=== PATIENT | female | born 1995 | race Caucasian/White ===

== ENCOUNTER → 2019-12-18 13:56 | Outpatient (BNVA) | payer SELFPAY | PROVIDERS: Visit Provider Obstetrics & Gynecology | DX: Z36.89 Encounter for other specified antenatal screening (principal); O09.899 Supervision of other high risk pregnancies, unspecified trimester | CPT/HCPCS: 76801 ==

== ENCOUNTER → 2020-01-01 11:04 | Outpatient (BNVA) | payer MEDICAID, SELFPAY | PROVIDERS: Visit Provider Obstetrics & Gynecology | DX: O09.899 Supervision of other high risk pregnancies, unspecified trimester (principal) | CPT/HCPCS: 80053; 80307; 81000; 84443; 85027; 86592; 86762; 86803; 86850; 86900; 87340; 87491; 87591; 87806; 88175 ==

== ENCOUNTER 2020-01-14 21:13 | Emergency (ER) | payer MEDICAID, SELFPAY ==
[2020-01-14 21:20] VITALS: BP 127/83; PULSE 79; RESP 16; TEMP 37.1; O2SAT 100; BMI 22.6
[2020-01-14 21:29] VITALS: BP 111/58; PULSE 69; RESP 16; O2SAT 99
--- NOTE | 2020-01-14 21:41 | W.ED.PREGNAN ---
HPI - General: Chief complaint: Vaginal Bleeding Stated complaint: vaginal bleeding Time Seen by Provider: 01/14/20 21:38 History of Present Illness: HPI Narrative: Patient is a 24-year-old female who comes to the ED with pelvic cramping and spotting. She is currently 16 weeks . Patient says symptoms started this morning. She describes the spotting is very light with a brown-reddish color. The pelvic cramping comes and goes and she says it gets sharp at times. She denies any fever or UTI symptoms. Date of Last Menstrual Period: 09/13/19 Associated symptoms: Deny abdominal pain, dysuria, headache(s), nausea or vomiting Review of Systems Const: Denies: fever, chills or fatigue Eyes: Denies: change in vision or eye discomfort ENMT: Denies: throat pain, painful swallowing, nasal discharge or nasal congestion Card: Denies: chest pain, palpitations, edema, swelling of feet/ankles, shortness of breath on exertion or shortness of breath when lying down Resp: Denies: shortness of breath, productive cough or non-productive cough GI: Denies: abdominal pain, nausea, vomiting, diarrhea, constipation or blood in stool : Denies: flank pain, painful urination or blood in urine Musc: Denies: neck pain, back pain or extremity swelling Skin/Breast: Denies: rash or new lesion Neuro: Denies: headache, numbness in extremities or weakness in extremities PFS ED PFSH: Medical History Anxiety with depression has used medication in the past; especially ; symptoms managed since 2019 w/o meds Fever blister Reports having fever blisters around the mouth and nose area. Denies history of genital herpes. History of cholestasis during Diagnosed in 7th . Required delivery at 36 weeks. Tachycardia (~2012) Surgical History History of appendectomy (~2015) History of neck surgery (~2015) cyst as a child History of tonsillectomy (~2015) Family History Grandmother Hypertension Maternal grandmother Stroke Maternal Grandfather Hypertension Maternal grandfather Hyperlipidemia Paternal grandfather Colon cancer Maternal great grandfather Family/Other Breast cancer Maternal great aunt Social History Smoking and tobacco status: never smoked Quit status (tobacco): has quit using tobacco Year quit tobacco: 09/2019 Former quit date comment: 4-5 cig/day Alcohol intake: former Former alcohol use details: occasional prior to Female Reproductive History: Date of last menstrual period: 09/13/19 Physical Exam Const: COMMON NORMALS: no apparent distress, oriented x3, healthy appearing and alert GENERAL APPEARANCE: cooperative and comfortable HENMT: COMMON NORMALS: normocephalic HEAD & SCALP: normocephalic MOUTH: oral and palatal mucosa normal THROAT: posterior oropharynx normal and uvula midline Eye: COMMON NORMALS: PERRL PUPIL: Yes PERRL Neck/C-Spine: COMMON NORMALS: supple GENERAL: Yes normal visual inspection Resp: COMMON NORMALS: normal respiratory effort, no retractions, no use of accessory muscles and clear to auscultation bilaterally AUSCULTATION: clear to auscultation bilaterally Cardio: COMMON NORMALS: regular rate, regular rhythm, S1 normal heart sound, S2 normal heart sound, no gallops, no clicks, no murmurs and peripheral pulses 2+ throughout RATE: regular rate RHYTHM: regular rhythm HEART SOUNDS: S1 normal and S2 normal PERIPHERAL PULSES: pulses 2+ throughout GI: COMMON NORMALS: normal to inspection, nondistended, normoactive bowel sounds, soft to palpation, non-tender and no masses INSPECTION: Yes gravid abdomen AUSCULTATION: Yes normoactive bowel sounds PALPATION: Yes soft : COMMON NORMALS: Yes no CVA tenderness BLADDER/KIDNEY EXAM: Yes no CVA tenderness Back/Pelvis: COMMON NORMALS: no CVA tenderness Extremity: COMMON NORMALS: normal to inspection and no pedal edema Neuro: COMMON NORMALS: oriented x3 and moves all extremities SENSORIUM/ORIENTATION: Yes alert Skin: COMMON NORMALS: no rashes or lesions noted GENERAL SKIN EXAM: no rashes or lesions noted and dry skin Course Reevaluation(s): Reevaluation #1: Dr. Henriquez performed a bedside ultrasound and said he was able to see an intrauterine with heartbeat over 140s and baby was moving. Time: 21:50 Vital Signs: Vital signs: Vital Signs Temperature 98.8 F 01/14/20 21:20 Pulse Rate 70 01/14/20 22:32 Respiratory Rate 16 01/14/20 22:32 Blood Pressure 116/60 01/14/20 22:32 Pulse Oximetry 99 01/14/20 22:32 MDM - OB/Uterine Contractions MDM Narrative: Medical decision making narrative: Patient is a 24-year-old female that is 16 weeks and comes to the ED with some spotting and cramping. Bedside ultrasound was performed by Dr. Henriquez and he identified an intrauterine with a heartbeat over 140s and baby was active and moving. Patient was discharged and told to follow-up with OB doctor at next scheduled appointment. Patient said her next OB doctor appointment is within the next 5 days. Patient understood and agreed with plan. Lab Data: Attestation: I reviewed the patient's lab results. Labs: Lab Results 01/14/20 01/14/20 01/14/20 Range/Units 21:50 21:50 21:50 WBC 10.3 H (4.0-10.0) 10^3/ uL RBC 4.18 (4.1-5.3) 10^6/u L Hgb 12.5 (11.5-15.3) g/dL Hct 37.1 (37.0-47.0) % MCV 88.8 (81-99) fL MCH 29.9 (28.0-34.0) pg MCHC 33.7 (30.0-36.0) g/dL RDW 12.1 (12.1-15.1) % Plt Count 269 (130-400) 10^3/c mm MPV 10.0 (7.4-10.4) fL Neut % (Auto) 67.5 % Lymph % (Auto) 22.4 % [place]ickson % (Auto) 7.7 % Eos % (Auto) 1.3 % Baso % (Auto) 0.5 % Neut # (Auto) 7.0 (1.8-7.7) 10^3/u L Lymph # (Auto) 2.3 (0.8-4.8) 10^3/u L Dickson # (Auto) 0.8 (0.2-0.9) 10^3/u L Eos # (Auto) 0.1 (0.0-0.8) 10^3/u L Baso # (Auto) 0.1 (0.0-0.1) 10^3/u L Nucleated RBC % (a uto) 0 % Nucleated RBCs # 0.0 /100WBC Sodium 137 (136-145) mmol/L Potassium 3.5 (3.5-5.1) mmol/L Chloride 105 (98-107) mmol/L Carbon Dioxide 24 (22-29) mmol/L Anion Gap 11.5 (5-19) BUN 9 (6-20) mg/dL Creatinine 0.6 (0.5-0.9) mg/dL GFR Calculation 122.8 (90-130) mL/min Glucose 101 (65-115) mg/dL Calculated Osmolal ity 280 L (285-295) mOsm/k g Calcium 9.6 (8.5-10.5) mg/dL Total Bilirubin 0.2 (0.15-1.2) mg/dL AST 14 (0-32) U/L ALT 7 (0-33) U/L Alkaline Phosphata se 52 (35-105) IU/L Total Protein 6.6 (6.6-8.7) g/dL Albumin 3.8 (3.5-5.2) g/dL Globulin 2.8 (1.3-4.6) g/dL Blood Type O Positive Rho(D) Type Positive Antibody Screen Negative Discharge Plan Discharge Patient Disposition: Home, Self-Care Clinical Impression: Second trimester Condition: Stable Prescriptions: No Action acyclovir 400 mg tablet 400 mg PO BID 30 Days Qty: 60 RF: 12 prenat.vits,arielle,zpj-otui-sllwn Tablet 1 tab PO DAILY 30 Days Qty: 30 RF: 8 metoprolol succinate 25 mg tablet extended release 24 hr 25 mg PO DAILY RF: 0 diphenhydramine HCl [Benadryl Allergy] 25 mg tablet 25 mg PO ONCE PRNRF: 0 Discharge Orders: Discharge Order (Routine); Ordered 01/14/20 Ordered By: Conner Gonzalez Referrals: Lincoln Laboy MD [Primary Care Provider] - Discharge Diet: Regular Discharge Activity: Resume usual activity Patient Instructions: (ED) Activity Restrictions/Additional Instructions: Follow-up with your OB doctor at next scheduled appointment. Continue taking all your previously prescribed home medications. You can take Tylenol as needed for any pain. Discharge Date/Time: 01/14/20 22:33 Coding Level of Care Code ED Harnessmaker for Chg Fwd Exam Comprehensive
[2020-01-14 22:10] LABS: Basophils # 0.1 10^3/uL (0.0-0.1); Basophils % 0.5 %; Eosinophils # 0.1 10^3/uL (0.0-0.8); Eosinophils % 1.3 %; Hematocrit 37.1 % (37.0-47.0); Hemoglobin 12.5 g/dL (11.5-15.3); Lymphocytes # 2.3 10^3/uL (0.8-4.8); Lymphocytes % 22.4 %; Mean Corpuscular HGB Conc 33.7 g/dL (30.0-36.0); Mean Corpuscular Hemoglobin 29.9 pg (28.0-34.0); Mean Corpuscular Volume 88.8 fL (81-99); Monocytes # 0.8 10^3/uL (0.2-0.9); Monocytes % 7.7 %; Neutrophils % 67.5 %; Nucleated Red Blood Cells % 0 %; Platelet Count 269 10^3/cmm (130-400); Red Blood Count 4.18 10^6/uL (4.1-5.3); Red Cell Distribution Width 12.1 % (12.1-15.1); White Blood Count 10.3 10^3/uL (4.0-10.0)
[2020-01-14] MEDS: acetaminophen 500 mg Tablet PO (22:19)
[2020-01-14 22:26] LABS: Alanine Aminotransferase 7 U/L (0-33); Albumin Level 3.8 g/dL (3.5-5.2); Alkaline Phosphatase 52 IU/L (35-105); Anion Gap 11.5 (5-19); Aspartate Amino Transferase 14 U/L (0-32); Blood Urea Nitrogen 9 mg/dL (6-20); Calcium 9.6 mg/dL (8.5-10.5); Carbon Dioxide 24 mmol/L (22-29); Chloride 105 mmol/L (98-107); Globulin 2.8 g/dL (1.3-4.6); Glomerular Filtration Rate 122.8 mL/min (90-130); Glucose 101 mg/dL (65-115); Osmolality Calculated 280 mOsm/kg (285-295); Potassium 3.5 mmol/L (3.5-5.1); Sodium 137 mmol/L (136-145); Total Bilirubin 0.2 mg/dL (0.15-1.2); Total Protein 6.6 g/dL (6.6-8.7)
[2020-01-14 22:32] VITALS: BP 116/60; PULSE 70; RESP 16; O2SAT 99
== END 2020-01-14 22:33 | disposition home or self-care (01) ==
PROVIDERS: Emergency Provider Physician Assistant; PCP Obstetrics & Gynecology
DX: O26.892 Other specified pregnancy related conditions, second trimester (principal); N93.9 Abnormal uterine and vaginal bleeding, unspecified; Z3A.16 16 weeks gestation of pregnancy; Z87.891 Personal history of nicotine dependence
CPT/HCPCS: 12345; 36415; 80053; 85025; 86850; 86900; 99282; 99283

== ENCOUNTER → 2020-01-16 14:24 | Outpatient (BNVA) | payer MEDICAID, SELFPAY | PROVIDERS: PCP Obstetrics & Gynecology; Visit Provider Nurse Practitioner Women's Health | DX: O16.2 Unspecified maternal hypertension, second trimester (principal); O09.892 Supervision of other high risk pregnancies, second trimester; O09.42 Supervision of pregnancy with grand multiparity, second trimester; R00.0 Tachycardia, unspecified | CPT/HCPCS: 84315; 87491; 87591 ==

== ENCOUNTER 2020-01-25 16:50 | Outpatient (CLI) | payer MEDICAID, SELFPAY ==
[2020-01-25 22:15] LABS: Total Protein 24 Hour Urine 35.1 mg/24HR (0-150); Total Volume, Urine 450 mL; Urine Total Protein 24 Hour 7.8 mg/dL (0-150)
== END 2020-01-25 16:51 | disposition home or self-care (01) ==
LOC: LAB 16:53
PROVIDERS: PCP Obstetrics & Gynecology; Visit Provider Nurse Practitioner Women's Health
DX: O16.2 Unspecified maternal hypertension, second trimester (principal)
CPT/HCPCS: 84156

== ENCOUNTER → 2020-02-19 15:03 | Outpatient (BNVA) | payer MEDICAID, SELFPAY | PROVIDERS: PCP Obstetrics & Gynecology; Visit Provider Obstetrics & Gynecology | DX: Z36.89 Encounter for other specified antenatal screening (principal) | CPT/HCPCS: 76805 ==

== ENCOUNTER → 2020-02-22 13:38 | Outpatient (BNVA) | payer MEDICAID, SELFPAY | PROVIDERS: PCP Obstetrics & Gynecology; Visit Provider Obstetrics & Gynecology | DX: O16.2 Unspecified maternal hypertension, second trimester (principal); R00.0 Tachycardia, unspecified; L29.9 Pruritus, unspecified; O99.340 Other mental disorders complicating pregnancy, unspecified trimester | CPT/HCPCS: 80053; 81000 ==

== ENCOUNTER → 2020-02-27 08:00 | Outpatient (BNVA) | payer MEDICAID, SELFPAY | PROVIDERS: PCP Obstetrics & Gynecology; Visit Provider Obstetrics & Gynecology | DX: O16.2 Unspecified maternal hypertension, second trimester (principal); R00.0 Tachycardia, unspecified; O09.892 Supervision of other high risk pregnancies, second trimester; O99.342 Other mental disorders complicating pregnancy, second trimester; Z87.59 Personal history of other complications of pregnancy, childbirth and the puerperium; Z87.19 Personal history of other diseases of the digestive system; L29.9 Pruritus, unspecified | CPT/HCPCS: 84156 ==

== ENCOUNTER 2020-02-28 21:56 | Outpatient (CLI) | payer MEDICAID, SELFPAY ==
[2020-02-28] VITALS (8 sets, daily range): BP systolic 0–110; BP diastolic 0–73; PULSE 69–80; RESP 17; TEMP 37.2; BMI 24.3
[2020-02-28 22:40] LABS: Add Urine Microscopic? NO
[2020-02-28 22:43] LABS: Bilirubin Urine Neg (NEGATIVE); Blood Urine Neg (Negative); Glucose Urine UA Norm (Normal); Ketones Urine Negative (Negative); Leukocyte Esterase Urine Negative (Negative); Nitrate Urine Negative (Negative); Protein Urine Neg (Negative); Urine Appearance Clear (CLEAR); Urine Color Yellow (Yellow); Urobilinogen Urine Norm (Negative); pH Urine 6 (5-7)
[2020-02-28] MEDS: lactated ringers 1,000 ML 999 ML IV (22:43)
[2020-02-28] MEDS: terbutaline 1 mg/mL INJ 0.25 MG SUBCUT (22:44)
[2020-02-29] VITALS (11 sets, daily range): BP systolic 0–112; BP diastolic 0–68; PULSE 64–75; RESP 16; TEMP 36.8; O2SAT 99
[2020-02-29] MEDS: lactated ringers 1,000 ML 125 ML IV (00:40)
[2020-02-29] MEDS: magnesium sulfate premix 4 GM/100 ML PREMIX IV (00:52)
[2020-02-29] MEDS: betamethasone susp 6 mg/mL 5 mL 12 MG IM (00:54)
[2020-02-29] MEDS: acetaminophen 500 mg Tablet 1000 MG PO (01:20)
[2020-02-29] MEDS: magnesium sulfate premix 20 GM/500 ML BAG IV (01:22)
== END 2020-02-29 02:17 | disposition intermediate care facility (04) ==
LOC: OPOB 21:59 → OBGYN 22:00
PROVIDERS: PCP Obstetrics & Gynecology; Visit Provider Obstetrics & Gynecology
DX: O26.899 Other specified pregnancy related conditions, unspecified trimester (principal); Z3A.00 Weeks of gestation of pregnancy not specified; R10.9 Unspecified abdominal pain
CPT/HCPCS: 51702; 81003; 96372; 99211; J0702; J3105; J3475

== ENCOUNTER → 2020-03-14 14:55 | Outpatient (BNVA) | payer MEDICAID, SELFPAY | PROVIDERS: PCP Obstetrics & Gynecology; Visit Provider Obstetrics & Gynecology | DX: Z34.90 Encounter for supervision of normal pregnancy, unspecified, unspecified trimester (principal) | CPT/HCPCS: 81000 ==

== ENCOUNTER 2020-03-29 09:20 | Outpatient (CLI) | payer MEDICAID, SELFPAY ==
[2020-03-29 09:20] VITALS: BP 101/60; PULSE 75; TEMP 36.8; BMI 25.2
--- NOTE | 2020-03-29 09:55 | US_ITS ---
WS: [id number] ULTRASOUND OB LIMITED TECHNIQUE: Limited ultrasound examination of the fetus. CLINICAL INFORMATION: decreased movement COMPARISON: None. FINDINGS: Cervix measures 3.9 cm Single interuterine gestation. presentation is vertex Placental location is anterior. Placenta grade: 0. heart rate 147 BPM. Normal visualized amniotic fluid Biophysical profile 8 out of 8. breathin movement: 2 tone: 2 Amniotic fluid: 2 IMPRESSION Normal biophysical profile 8 out of 8
[2020-03-29 10:45] VITALS: BP 100/58; PULSE 67; RESP 18; TEMP 37
== END 2020-03-29 10:47 | disposition home or self-care (01) ==
LOC: OPOB 09:24 → OBGYN 10:34
PROVIDERS: PCP Obstetrics & Gynecology; Visit Provider Obstetrics & Gynecology
DX: O36.8190 Decreased fetal movements, unspecified trimester, not applicable or unspecified (principal); Z3A.00 Weeks of gestation of pregnancy not specified
CPT/HCPCS: 59025; 76819; 99211

== ENCOUNTER 2020-04-04 11:34 | Outpatient (CLI) | payer MEDICAID, SELFPAY ==
[2020-04-04] VITALS (9 sets, daily range): BP systolic 0–96; BP diastolic 0–57; PULSE 65–77; RESP 16; TEMP 36.6; BMI 25.8
[2020-04-04 12:35] LABS: Add Urine Microscopic? NO
[2020-04-04 12:37] LABS: Basophils % 0.4 %; Eosinophils # 0.1 10^3/uL (0.0-0.8); Eosinophils % 0.9 %; Hematocrit 33.2 % (37.0-47.0); Hemoglobin 10.9 g/dL (11.5-15.3); Lymphocytes # 1.5 10^3/uL (0.8-4.8); Lymphocytes % 13.5 %; Mean Corpuscular HGB Conc 32.8 g/dL (30.0-36.0); Mean Corpuscular Hemoglobin 29.5 pg (28.0-34.0); Mean Platelet Volume 9.9 fL (7.4-10.4); Monocytes # 0.7 10^3/uL (0.2-0.9); Monocytes % 6.5 %; Neutrophils % 77.6 %; Nucleated Red Blood Cells % 0 %; Platelet Count 280 10^3/cmm (130-400); Red Blood Count 3.69 10^6/uL (4.1-5.3); Red Cell Distribution Width 12.7 % (12.1-15.1); White Blood Count 11.3 10^3/uL (4.0-10.0)
[2020-04-04 12:39] LABS: Bilirubin Urine Neg (NEGATIVE); Blood Urine Neg (Negative); Glucose Urine UA Norm (Normal); Ketones Urine Negative (Negative); Leukocyte Esterase Urine Negative (Negative); Nitrate Urine Negative (Negative); Protein Urine Neg (Negative); Specific Gravity, Urine 1.015 (1.005-1.030); Urine Appearance Clear (CLEAR); Urine Color Yellow (Yellow); Urobilinogen Urine Norm (Negative); pH Urine 7 (5-7)
[2020-04-04 13:00] LABS: Urine Creatinine 112 mg/dL (28-217); Urine Protein Random 6 mg/dL
[2020-04-04 13:01] LABS: Alanine Aminotransferase 11 U/L (0-33); Albumin Level 3.3 g/dL (3.5-5.2); Alkaline Phosphatase 83 IU/L (35-105); Anion Gap 13.6 (5-19); Aspartate Amino Transferase 22 U/L (0-32); Blood Urea Nitrogen 8 mg/dL (6-20); Calcium 8.6 mg/dL (8.5-10.5); Carbon Dioxide 22 mmol/L (22-29); Chloride 106 mmol/L (98-107); Globulin 2.5 g/dL (1.3-4.6); Glomerular Filtration Rate 151.6 mL/min (90-130); Glucose 90 mg/dL (65-115); Osmolality Calculated 279 mOsm/kg (285-295); Potassium 4.6 mmol/L (3.5-5.1); Sodium 137 mmol/L (136-145); Total Bilirubin 0.2 mg/dL (0.15-1.2); Total Protein 5.8 g/dL (6.6-8.7); Uric Acid 3.4 mg/dL (2.4-5.7)
[2020-04-04 13:06] LABS: UPRO/UCREAT Ratio 0.05 mg/mg CR
== END 2020-04-04 13:35 | disposition home or self-care (01) ==
LOC: OPOB 11:34 → OBGYN 11:35
PROVIDERS: PCP Obstetrics & Gynecology; Visit Provider Obstetrics & Gynecology
DX: O26.899 Other specified pregnancy related conditions, unspecified trimester (principal); Z3A.00 Weeks of gestation of pregnancy not specified; R03.0 Elevated blood-pressure reading, without diagnosis of hypertension
CPT/HCPCS: 59025; 80053; 81003; 82570; 84156; 84550; 85025; 99211

== ENCOUNTER 2020-04-05 13:44 | Outpatient (CLI) | payer MEDICAID, SELFPAY ==
[2020-04-05] VITALS (46 sets, daily range): BP systolic 0–110; BP diastolic 0–67; PULSE 73–109; RESP 14–15; TEMP 36.8–36.9; O2SAT 89–99; BMI 25.4
[2020-04-05] MEDS: lactated ringers 1,000 ML 999 ML IV (15:04)
[2020-04-05] MEDS: terbutaline 1 mg/mL INJ 0.25 MG SUBCUT ×2 (15:18→15:53)
[2020-04-05 15:58] LABS: Bilirubin Urine Neg (NEGATIVE); Blood Urine Neg (Negative); Glucose Urine UA Norm (Normal); Ketones Urine Negative (Negative); Leukocyte Esterase Urine Negative (Negative); Nitrate Urine Negative (Negative); Protein Urine Neg (Negative); Specific Gravity, Urine 1.015 (1.005-1.030); Urine Appearance Clear (CLEAR); Urine Color Yellow (Yellow); Urobilinogen Urine Norm (Negative); pH Urine 7 (5-7)
[2020-04-05 15:59] LABS: Add Urine Culture? No; Bacteria Urine 2+; Mucus Urine 4+; RBC Urine 0-4 /hpf (0-2); WBC Urine 0-4 /hpf (0-5)
[2020-04-05] MEDS: NIFEdipine 10 mg Capsule 20 MG PO (16:29)
[2020-04-05] MEDS: lactated ringers 1,000 ML 500 ML IV (16:40)
== END 2020-04-05 18:24 | disposition home or self-care (01) ==
LOC: OPOB 13:50 → OBGYN 18:13
PROVIDERS: PCP Obstetrics & Gynecology; Visit Provider Obstetrics & Gynecology
DX: O36.8190 Decreased fetal movements, unspecified trimester, not applicable or unspecified (principal); Z3A.00 Weeks of gestation of pregnancy not specified; R10.9 Unspecified abdominal pain
CPT/HCPCS: 59025; 81001; 96360; 96361; 96372; 99211; J3105

== ENCOUNTER → 2020-04-11 14:07 | Outpatient (BNVA) | payer MEDICAID, SELFPAY | PROVIDERS: PCP Obstetrics & Gynecology; Visit Provider Nurse Practitioner Women's Health | DX: O09.892 Supervision of other high risk pregnancies, second trimester (principal); O99.342 Other mental disorders complicating pregnancy, second trimester | CPT/HCPCS: 81000; 82950; 85027 ==

== ENCOUNTER 2020-04-25 08:36 | Outpatient (CLI) | payer MEDICAID, SELFPAY ==
[2020-04-25] VITALS (14 sets, daily range): BP systolic 0–119; BP diastolic 0–70; PULSE 72–94; TEMP 36.5–36.6; BMI 26.3
[2020-04-25] MEDS: terbutaline 1 mg/mL INJ 0.25 MG SUBCUT ×2 (09:50→10:24)
[2020-04-25 10:04] LABS: Bilirubin Urine Neg (NEGATIVE); Blood Urine 2+ (Negative); Glucose Urine UA Norm (Normal); Ketones Urine Negative (Negative); Leukocyte Esterase Urine Trace (Negative); Nitrate Urine Negative (Negative); Protein Urine Neg (Negative); Urine Appearance Hazy (CLEAR); Urine Color Yellow (Yellow); Urobilinogen Urine Neg (Negative); pH Urine 6.5 (5-7)
[2020-04-25 10:05] LABS: Add Urine Culture? No; Bacteria Urine 2+; Mucus Urine 2+; Squamous Epithelial Cell Urine 15-25 (0-5); WBC Urine 0-4 /hpf (0-5)
--- NOTE | 2020-04-25 12:19 | US_ITS ---
WS: [id number] ULTRASOUND OB LIMITED TECHNIQUE: Limited ultrasound examination of the fetus. CLINICAL INFORMATION: hypertension COMPARISON: March 29, 2020 FINDINGS: Cervix measures 5.6 cm Single interuterine gestation. Placental location is anterior. Placenta grade: 1 heart rate 131 BPM. Normal XAVIER 14.8 cm. Biophysical profile 8 out of 8. breathin movement: 2 tone: 2 Amniotic fluid: 2 US/US OB BPP wo NST [id number] IMPRESSION: NORMAL BIOPHYSICAL PROFILE 8 OUT OF 8 NORMAL XAVIER 14.8
== END 2020-04-25 13:50 | disposition home or self-care (01) ==
LOC: OPOB 08:42 → OBGYN 13:29
PROVIDERS: PCP Obstetrics & Gynecology; Visit Provider Obstetrics & Gynecology
DX: O26.899 Other specified pregnancy related conditions, unspecified trimester (principal); R10.9 Unspecified abdominal pain; Z3A.00 Weeks of gestation of pregnancy not specified
CPT/HCPCS: 59025; 76819; 81001; 96372; 99211; J3105

== ENCOUNTER 2020-05-01 16:06 | Outpatient (CLI) | payer MEDICAID, SELFPAY ==
[2020-05-01] VITALS (28 sets, daily range): BP systolic 0–125; BP diastolic 0–71; PULSE 70–250; RESP 18; TEMP 36.4–36.7; O2SAT 90–100; BMI 26.3
[2020-05-01] MEDS: lactated ringers 1,000 ML 999 ML IV (16:40)
[2020-05-01] MEDS: terbutaline 1 mg/mL INJ 0.25 MG SUBCUT ×2 (17:22→18:07)
== END 2020-05-01 19:15 | disposition home or self-care (01) ==
LOC: OPOB 16:19 → OBGYN 16:29
PROVIDERS: PCP Obstetrics & Gynecology; Visit Provider Obstetrics & Gynecology
DX: O60.00 Preterm labor without delivery, unspecified trimester (principal); Z3A.00 Weeks of gestation of pregnancy not specified
CPT/HCPCS: 36415; 96372; 99211; J3105

== ENCOUNTER 2020-05-08 14:01 | Inpatient (IN) | payer MEDICAID, SELFPAY ==
[2020-05-08] VITALS (8 sets, daily range): BP systolic 110–118; BP diastolic 65–74; PULSE 75–96; RESP 18; BMI 26.2
[2020-05-08] MEDS: betamethasone susp 6 mg/mL 5 mL 12 MG IM (15:39)
[2020-05-08] MEDS: dextrose 5%-lactated ringers 1,000 ML 125 ML IV (15:40)
--- NOTE | 2020-05-08 16:17 | PM.OBGYHP ---
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 She presented to labor and delivery at 14:00 on 05/08/2020 with complaint of possible leaking of fluid. She stated that at approximately 13:20 she had a large gush of fluid that soaked through her clothing and pulled on the floor. She reports having intermittent gushes since that time whenever the baby moves. She denied vaginal bleeding prior to this, but has had light spotting off and on through most of the . She denied having contractions prior to arrival but has felt more crampiness since arriving to the hospital. care has been complicated by history of PPROM with PTD at 34 weeks and prior and is on [place], history of IUFD at 26 weeks in prior , history of cholestasis of in prior , history of oral herpes (denies genital herpes). She has had hypertension diagnosed at the beginning of with tachycardia and is on metoprolol for treatment of both of these conditions. She has also been taking aspirin due to the hypertension. She is on Zoloft and BuSpar due to depression and anxiety. LABS 10/10/2014: Cystic Fibrosis Mutation Screening: Screen negative. 01/01/2020 Blood type: O+ Antibody screen: Negative CBC: 9.9 <13.1/39.6 > 299 Rubella: Immune Hepatitis B surface antigen: Nonreactive Hepatitis C antibody: Nonreactive RPR: Nonreactive HIV: Nonreactive Drug screen: Negative Urine culture: [id number] colonies; contamination Pap smear: NILM Gonorrhea: lab cancelled at [facility]; recollected by urine 01/16/2020 Chlamydia: Lab canceled at [facility]; recollected by urine 01/16/2020 Panorama: Low risk /male fetus/ fraction 8.9% TSH: 1.42 01/16/2020 Quad screen: Declines Gonorrhea: Negative Chlamydia: Negative 02/22/2020 24-hour urine total protein: 74 mg (TV 1275) Bile acids: 11 04/11/2020 28 week CBC: WBC 10.0, Hgb 11.4, Hct 33.9, MCV 90.6, Plt 287. GCT: 119. OB ULTRASOUND LMP 09/25/2019 ---> EDC 07/01/2020 1. 12/18/2019 ---> 12-2/7 WG ---> EDC 06/29/2020. Consistent with dates. Performed at [facility]. CRL 5.8 cm. FHR 159 bpm. 2. 02/19/2020 ---> 20-3/7 WG ---> EDC 07/05/2020. EFW 13 oz (362 g) 24%. Performed at [facility]. Consistent with dates. Normal anatomic survey. Male. Transverse lie. FHR 144 bpm. Anterior placenta without previa. Grade 1. Visually normal amniotic fluid volume. Cervix 4.9 cm. Present Details Date of Last Menstrual Period: 09/13/19 Calculated Date of Delivery: 06/19/20 Gestational Age Based on Last Menstrual Period: 34 Review of Systems Const: Denies: fever(s) or chills Eyes: Denies: change in vision ENMT: Denies: throat pain or nasal congestion Card: Denies: chest pain, palpitations, swelling of feet/ankles or lightheadedness Resp: Denies: dyspnea, productive cough, non-productive cough or wheezing GI: Denies: abdominal pain, nausea, vomiting or diarrhea : Reports: urinary frequency; Denies: dysuria, urinary urgency, genital pruritis, vaginal bleeding or pelvic pain Neuro: Denies: headache(s), dizziness or seizure-like activity Psych: Reports: anxiety and depression [place]/Lymph: Denies: easy bruising or easy bleeding Medications/Allergies Home Medications Medication Instructions Recorded Confirmed Last Taken Type diphenhydramine HCl 25 mg tablet 25 mg PO ONCE PRN tab 12/26/19 05/02/20 05/01/20 08:00 History acyclovir 400 mg tablet 400 mg PO BID 30 Days #60 tab 01/01/20 05/02/20 05/01/20 08:00 Rx prenat.vits,arielle,tug-ztgw-bmike 1 tab PO DAILY 30 Days #30 tab 01/01/20 05/02/20 05/01/20 08:00 Rx buspirone 5 mg tablet 5 mg PO BID #60 tab 02/22/20 05/02/20 05/01/20 08:00 Rx metoprolol succinate 50 mg 75 mg PO DAILY #45 tab 03/26/20 05/02/20 05/01/20 08:00 Rx tablet,extended release 24 hr aspirin 81 mg chewable tablet 81 mg PO BID tab 04/11/20 05/02/20 05/01/20 08:00 History breast pump #1 each 04/11/20 05/02/20 Unknown Rx sertraline 50 mg tablet 75 mg PO DAILY #45 tab 04/11/20 05/02/20 05/01/20 08:00 Rx Allergies Allergy/AdvReac Type Severity Reaction Status Date / Time amoxicillin Allergy Severe Hives, Verified 05/02/20 08:54 anaphylaxis cephalexin [From Keflex] Allergy Severe Hives, Verified 05/02/20 08:54 anaphylaxis ciprofloxacin [From Cipro] Allergy Severe Hives, Verified 05/02/20 08:54 anaphylaxis Penicillins Allergy Severe Hives, Verified 05/02/20 08:54 anaphylaxis 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 Denies history of genital herpes. History of cholestasis during Diagnosed in 7th . Required delivery at 36 weeks. Tachycardia (~2012) Surgical History History of appendectomy (~2015) History of neck surgery (~2015) cyst as a child History of tonsillectomy (~2015) Family History Grandmother Hypertension Maternal grandmother Stroke Maternal Grandfather Hypertension Maternal grandfather Hyperlipidemia Paternal grandfather Colon cancer Maternal great grandfather Family/Other Breast cancer Maternal great aunt Social History Smoking and tobacco status: never smoked Quit status (tobacco): has quit using tobacco Year quit tobacco: 09/2019 Former quit date comment: 4-5 cig/day Alcohol intake: former Former alcohol use details: occasional prior to Additional social history: Denies any drug use. 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 Estimated Delivery Date Method Current WG Current Estimate 07/01/20 LMP (Certain) 32w 2d Other Estimates 06/29/20 Ultrasound #1 32w 4d Expected Delivery Route/Plan Vaginal Specific Issues/Plans Hx of PPROM with PTD at 34 weeks Hx of IUFD @ 26 weeks Hx of cholestasis in Elevated BP without HTN dx Hx of oral herpes (denies genital outbreaks) Depression/anxiety - Taking Zoloft and BuSpar Grand multiparity Tachycardia Vitals/I&O/Wt Last Vital Signs Pulse 75 05/08/20 16:10 BP 112/69 05/08/20 16:10 Physical Exam Const: COMMON NORMALS: no acute distress, average body habitus, alert and well nourished GENERAL APPEARANCE: well developed ORIENTATION/CONSCIOUSNESS: Yes oriented to person, Yes oriented to place and Yes oriented to time Neck/C-Spine: COMMON NORMALS: Thyroid normal GENERAL: Yes trachea midline THYROID: Thyroid normal Resp: COMMON NORMALS: normal respiratory effort and clear to auscultation bilaterally AUSCULTATION: clear to auscultation bilaterally Cardio: COMMON NORMALS: regular rate, regular rhythm, No gallops present (Cardio), No murmurs present (Cardio) and No rub (Cardio) RATE: regular rate RHYTHM: regular rhythm GI: COMMON NORMALS: Soft to palpation, non-tender, No hepatosplenomegaly present and no masses (Except for nontender gravid uterus) AUSCULTATION: Yes normoactive bowel sounds PALPATION: Yes Soft to palpation, Yes No hepatosplenomegaly present and No Hernia present Neuro: SENSORIUM/ORIENTATION: Yes alert, Yes oriented to person, Yes oriented to place and Yes oriented to time Psych: COMMON NORMALS: normal affect MOOD & AFFECT: Yes euthymic mood Skin: COMMON NORMALS: no rashes or lesions noted GENERAL SKIN EXAM: no rashes or lesions noted Data Other data: 05/08/2020: Bedside Ultrasound Ultrasound performed by myself. Cephalic presentation. Anterior placenta. Single pocket of fluid identified measuring 3.0 cm in depth. MONITORING: heart rate 130s to 140s with moderate variability and accelerations present. Rare variable decelerations noted. Reactive tracing noted. Occasional contractions present. A&P Assessment and plan (1) premature rupture of membranes in third trimester: Patient is currently at 32-2/7 weeks gestation and is grossly ruptured based on exam. Baby is in a cephalic presentation based on bedside ultrasound. Cervix is 1 to 2 cm dilated on initial exam. Discussed with patient that at 32 weeks, we recommend delivery at facility that has ICU capabilities due to the prematurity of the baby. Discussed with her that at this point, recommendations are to not deliver the baby unless or maternal reasons indicate needing to deliver. Use of antibiotics and those with rupture membranes was discussed. Use of steroids for lung maturity was discussed. Use of magnesium for neuro protection was discussed. Questions were answered. Patient wishes to be transferred to [facility] if possible. Patient to receive first dose of betamethasone. Will be contacting [facility] about possible transfer. Status: Acute Qualifiers: PROM onset of labor timing: unspecified duration between rupture of membranes and onset of labor Qualified Code(s): O42.913 - premature rupture of membranes, unspecified as to length of time between rupture and onset of labor, third trimester (2) Gestational hypertension: Patient has been on metoprolol since December 2019 initially due to tachycardia which is also maintained her blood pressure and [id number] levels. She had been found to have elevated blood pressures when evaluated in [place] at approximately 6 weeks gestation. She was also started on aspirin 81 mg daily. Blood pressure was normal in labor and delivery today. She is currently taking metoprolol ER 50 mg, 1-1/2 tablets daily and aspirin daily. She has been having weekly testing including biophysical profile with NSTs. Status: Acute Qualifiers: Trimester: third trimester Qualified Code(s): O13.3 - Gestational [-induced] hypertension without significant proteinuria, third trimester (3) Tachycardia: Patient diagnosed with unexplained tachycardia in seventh with a negative evaluation at that time. She had had baseline heart rate in December 2019 during the in the 100-1 20s range. She had normal thyroid testing. [facility] was consulted and she was evaluated by cardiology who recommended her to take metoprolol. She is currently taking metoprolol ER 75 mg daily. Status: Acute (4) History of premature rupture of membranes (PROM) in previous , currently : Patient had premature rupture of membranes at 34 weeks with her third . Her seventh was delivered at 36 weeks. However, this was due to an induction due to cholestasis of . Due to the prior PPROM with delivery at 34 weeks, treatment with Khadijah recommended. She has been taking Oleary injections weekly since 16 weeks gestation. Status: Acute Qualifiers: Trimester: second trimester Qualified Code(s): O09.292 - Supervision of with other poor reproductive or obstetric history, second trimester (5) Current in third trimester with history of during prior : She had an unexplained IUFD with her second at 26 weeks gestation. This puts her at an increased risk for demise during this . She has been having testing including biophysical profiles with NSTs weekly. Status: Acute (6) History of cholestasis during : Patient had cholestasis of during her seventh requiring early delivery at 36 weeks. Evaluation during and 02/2020 resulted in normal bile acid levels. She has been asymptomatic at this time. Status: Acute (7) Mental disorder affecting : Patient with prepregnancy depression anxiety. She had used Zoloft and Celexa in the past. Due to worsening symptoms during the , she was started on sertraline 50 mg daily and buspirone 5 mg twice a day which she is currently taking. She has done well with this. Status: Acute Qualifiers: Trimester: third trimester Qualified Code(s): O99.343 - Other mental disorders complicating , third trimester (8) Grand multiparity with current : Status: Acute Qualifiers: Trimester: third trimester Qualified Code(s): O09.43 - Supervision of with grand multiparity, third trimester (9) Fever blister: Patient with a history of fever blisters around the mouth and nose area. She denied any past history of genital herpes. Blood testing and a prior was reported to has being positive for type II herpes. She has been on daily suppression with acyclovir since December 2019. She denies any past or current symptoms of genital herpes. Status: Acute Attestations Medical Necessity Statement*: Patient is being admitted to the hospital due to premature rupture membranes with plan to transfer out of the hospital. Coding Level of Care Code Acute Cyber Workforce Developer And Manager for Vijaya Rocha Diagnoses premature rupture of membranes in third trimester O42.913 PROM onset of labor timing: unspecified duration between rupture of membranes and onset of labor Gestational hypertension O13.3 Trimester: third trimester Tachycardia R00.0 History of premature rupture of membranes (PROM) in previous , currently O09.292 Trimester: second trimester Current in third trimester with history of during prior O09.293 History of cholestasis during Z87.59; Z87.19 Mental disorder affecting O99.343 Trimester: third trimester Grand multiparity with current O09.43 Trimester: third trimester Fever blister B00.1
[2020-05-08 16:35] LABS: Basophils % 0.4 %; Eosinophils # 0.1 10^3/uL (0.0-0.8); Eosinophils % 0.5 %; Lymphocytes # 1.3 10^3/uL (0.8-4.8); Lymphocytes % 13.9 %; Mean Corpuscular HGB Conc 32.4 g/dL (30.0-36.0); Mean Corpuscular Hemoglobin 29.3 pg (28.0-34.0); Mean Corpuscular Volume 90.2 fL (81-99); Mean Platelet Volume 10.9 fL (7.4-10.4); Monocytes # 0.6 10^3/uL (0.2-0.9); Monocytes % 6.2 %; Neutrophils # 7.45 10^3/uL (1.8-7.7); Neutrophils % 78.2 %; Nucleated Red Blood Cells % 0 %; Platelet Count 253 10^3/cmm (130-400); Red Cell Distribution Width 12.1 % (12.1-15.1); White Blood Count 9.5 10^3/uL (4.0-10.0)
[2020-05-08] MEDS: ondansetron 2 mg/ML SDV 2 mL 4 MG IVP (16:54)
--- NOTE | 2020-05-08 16:55 | P.TS_ITS ---
Transfer Summary Providers Date of Admission: 05/08/2020 Date of Discharge: 05/08/20 Attending Provider at Admission: Lincoln Laboy MD Attending Provider at Transfer: Lincoln Laboy MD Primary Care Provider: Lincoln Laboy MD Anticipated Date of Transfer: Anticipated date of transfer: 05/08/20 Receiving Facility & Provider: Receiving Provider: Dr. Kaylene Henriquez Receiving facility: [facility] Diagnoses at Discharge Discharge Diagnosis (1) premature rupture of membranes in third trimester: Status: Acute Qualifiers: PROM onset of labor timing: unspecified duration between rupture of membranes and onset of labor Qualified Code(s): O42.913 - premature rupture of membranes, unspecified as to length of time between rupture and onset of labor, third trimester (2) Gestational hypertension: Status: Acute Qualifiers: Trimester: third trimester Qualified Code(s): O13.3 - Gestational [-induced] hypertension without significant proteinuria, third trimester (3) Tachycardia: Status: Acute (4) History of premature rupture of membranes (PROM) in previous , currently : Status: Acute Qualifiers: Trimester: second trimester Qualified Code(s): O09.292 - Supervision of with other poor reproductive or obstetric history, second trimester (5) Current in third trimester with history of during prior : Status: Acute (6) History of cholestasis during : Status: Acute Problem details: Diagnosed in 7th . Required delivery at 36 weeks. (7) Mental disorder affecting : Status: Acute Qualifiers: Trimester: third trimester Qualified Code(s): O99.343 - Other mental disorders complicating , third trimester (8) Grand multiparity with current : Status: Acute Qualifiers: Trimester: third trimester Qualified Code(s): O09.43 - Supervision of with grand multiparity, third trimester (9) Fever blister: Status: Acute Problem details: Reports having fever blisters around the mouth and nose area. Denies history of genital herpes. Reason for Visit Reason for Visit: leaking fluid Hospital Course Hospital Course: Patient was confirmed as having grossly ruptured membranes. Bedside ultrasound had confirmed cephalic presentation. She initially had monitoring with rare contractions noted. She received initial dose of betamethasone 12 mg IM. Due to premature rupture of membranes at 32 weeks gestation, she is being transferred to [facility]. Per discussion with Dr. Henriquez at [facility], patient has not been started on antibiotics or magnesium at this time. Physical Exam Const: COMMON NORMALS: no acute distress, average body habitus, alert and well nourished GENERAL APPEARANCE: well developed ORIENTATION/CONSCIOUSNESS: Yes oriented to person, Yes oriented to place and Yes oriented to time GI: PALPATION: Yes Hernia present : EXTERNAL FEMALE EXAM: Yes Hernia present OTHER: External genitalia: Normal in appearance. No lesions seen. Shaved. Anus/perineum: No perineal lesions noted. Urethral meatus: Normal in size and location with no lesions or prolapse noted Vagina: Normal in appearance. No lesions noted. Fluid present within the vagina. Cervix: Normal in appearance. No lesions seen. Fluid seen leaking from the cervix. Cervix appears 1 cm dilated on speculum exam No blood seen. Neuro: SENSORIUM/ORIENTATION: Yes alert, Yes oriented to person, Yes oriented to place and Yes oriented to time Psych: COMMON NORMALS: normal affect MOOD & AFFECT: Yes euthymic mood TS Data Data Completed and Pending: Labs from last 24 hours 05/08/20 14:40 WBC 9.5 RBC 4.10 Hgb 12.0 Hct 37.0 MCV 90.2 MCH 29.3 MCHC 32.4 RDW 12.1 Plt Count 253 MPV 10.9 H Neut % (Auto) 78.2 Lymph % (Auto) 13.9 Dauphin % (Auto) 6.2 Eos % (Auto) 0.5 Baso % (Auto) 0.4 Neut # (Auto) 7.45 Lymph # (Auto) 1.3 Dauphin # (Auto) 0.6 Eos # (Auto) 0.1 Baso # (Auto) 0.0 Nucleated RBC % (a uto) 0 Nucleated RBCs # 0.0 Addt'l Data from Hospital Stay: MONITORING: Baseline heart rate 130s with moderate variability and no decelerations noted. Rare contractions noted. Vitals: Last Vital Signs Pulse 78 05/08/20 16:49 BP 114/65 05/08/20 16:49 TS Medications Medications Home Medications diphenhydramine HCl 25 mg tablet 25 mg PO ONCE PRN tab 12/26/19 [History Confi rmed 05/02/20] acyclovir 400 mg tablet 400 mg PO BID 30 Days #60 tab 01/01/20 [Rx Confirmed 05/02/20] prenat.vits,arielle,puh-zgby-xenxp 1 tab PO DAILY 30 Days #30 tab 01/01/20 [Rx Confirmed 05/02/20] buspirone 5 mg tablet 5 mg PO BID #60 tab 02/22/20 [Rx Confirmed 05/02/20] metoprolol succinate 50 mg tablet,extended release 24 hr 75 mg PO DAILY #45 tab 03/26/20 [Rx Confirmed 05/02/20] aspirin 81 mg chewable tablet 81 mg PO BID tab 04/11/20 [History Confirmed 05/02/20] breast pump #1 each 04/11/20 [Rx Confirmed 05/02/20] sertraline 50 mg tablet 75 mg PO DAILY #45 tab 04/11/20 [Rx Confirmed 05/02/20] Active Medications Carboprost Tromethamine (Hemabate) 250 mcg IM ONCE PRN PRN Reason: 3rd line bleeding Ephedrine Sulfate (Ephedrine) 10 mg IVP Q3M PRN PRN Reason: hypotension as directed by Lactated Ringer's (Lactated Ringers) 1,000 mls @ 999 mls/hr IV .Q1H1M PRN PRN Reason: BLEEDING Lactated Ringer's (Lactated Ringers) 1,000 mls @ 999 mls/hr IV .Q1H1M PRN PRN Reason: Per L&D Rescitation Protocol Tranexamic Acid 1,000 mg/ (Sodium Chloride) 110 mls @ 330 mls/hr IV Q30M PRN PRN Reason: BLEEDING Dextrose/Lactated Ringer's (Dextrose 5%-Lactated Ringers) 1,000 mls @ 125 mls/hr IV .Q8H LUMA Last Admin: 05/08/20 15:40 Dose: 125 mls/hr Documented by: Methylergonovine Maleate (Methergine) 0.2 mg IM Q20M PRN PRN Reason: 2nd line bleeding Misoprostol (Cytotec) 800 mcg ID ONCE PRN PRN Reason: 1st line bleeding Oxytocin (Pitocin) 20 unit IM ONCE PRN PRN Reason: 4th line bleeding Oxytocin (Pitocin) 20 unit IV ONCE PRN PRN Reason: 4th line bleeding Discharge Plan Discharge Patient Disposition: Home Prescriptions: No Action buspirone 5 mg tablet 5 mg PO BID Qty: 60 RF: 8 aspirin [Vero Chewable Aspirin] 81 mg tablet,chewable 81 mg PO BID RF: 0 acyclovir 400 mg tablet 400 mg PO BID 30 Days Qty: 60 RF: 12 prenat.vits,arielle,eki-nulu-awmpv Tablet 1 tab PO DAILY 30 Days Qty: 30 RF: 8 diphenhydramine HCl [Benadryl Allergy] 25 mg tablet 25 mg PO ONCE PRN (Reason: Allergies) RF: 0 (DME) breast pump Device See Rx Instructions .ROUTE .MEDSUPPLY Qty: 1 RF: 0 sertraline 50 mg tablet 75 mg PO DAILY Qty: 45 RF: 1 metoprolol succinate 50 mg tablet extended release 24 hr 75 mg PO DAILY Qty: 45 RF: 3 Discharge Orders: Transfer Out of Facility (Order); Ordered 05/08/20 Ordered By: Licnoln Laboy Diet: Regular Transfer Attestations Time Spent in Transfer Care*: less than 30 min Status at Transfer: Cognitive status at transfer: cognitively intact , Behavioral status at transfer: cooperative , Quality Metrics Clinical Quality Measures: During this hospital stay, did patient experience: None Coding Level of Care Code Acute 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 [employer] Diagnoses premature rupture of membranes in third trimester O42.913 PROM onset of labor timing: unspecified duration between rupture of membranes and onset of labor Gestational hypertension O13.3 Trimester: third trimester Tachycardia R00.0 History of premature rupture of membranes (PROM) in previous , currently O09.292 Trimester: second trimester Current in third trimester with history of during prior O09.293 History of cholestasis during Z87.59; Z87.19 Mental disorder affecting O99.343 Trimester: third trimester Grand multiparity with current O09.43 Trimester: third trimester Fever blister B00.1
--- NOTE | 2020-05-08 17:55 | PC.NURSE ---
DR. BRODERICK ORDERED PT TO BE SHIPPED TO [facility] SO THIS DIRECTOR INFORMATION CALLED 911 AT 1625 AND THEY PUT ME THRU TO [facility] AND I WAS INFORMED THAT THEY ALREADY HAD 2 TRANSPORT TEAMS OUT TO [facility] AND THAT THEY ONLY HAD ONE BUS AVAILABLE TO TRANSPORT A LIFE THREAT AND WONDERED IF THEY COULD BE TRANSFERRED BY [facility] OR IF [facility] COULD POSSIBLE COME AND GET HER. TOLD THEM THAT WAITING 4 HOURS TO COME GET HER WAS OUT OF THE QUESTION. THIS DIRECTOR INFORMATION TOLD HIM THAT I WOULD TALK TO DOCTOR AND THAT IF HE WAS GOOD WITH HER GOING BY AIR THAT I WOULD CONTACT [facility]. TALKED WITH DR. BRODERICK AND HE WANTED HER TO GO [facility] SO THIS DIRECTOR INFORMATION CONTACTED [facility] AT 1630 AND THEY WERE AVAILABLE TO TRANSPORT AND WERE DISPATCHED. 1655 [facility]W ON FLOOR AND REPORT GIVEN. 1705 PT DISCHARGED WITH [facility].
== END 2020-05-08 17:05 | disposition short-term general hospital (02) | DRG 833 ==
LOC: OPOB 14:10 → OBGYN 14:11 → OPOB 05-09 07:21 → OBGYN 05-09 07:22
PROVIDERS: Admitting Provider Obstetrics & Gynecology; PCP Obstetrics & Gynecology; Visit Provider Obstetrics & Gynecology
DX: O42.913 Preterm premature rupture of membranes, unspecified as to length of time between rupture and onset of labor, third trimester (principal); Z3A.32 32 weeks gestation of pregnancy; O13.3 Gestational [pregnancy-induced] hypertension without significant proteinuria, third trimester; O99.344 Other mental disorders complicating childbirth; O13.4 Gestational [pregnancy-induced] hypertension without significant proteinuria, complicating childbirth; F41.8 Other specified anxiety disorders; Z87.891 Personal history of nicotine dependence
CPT/HCPCS: 36415; 51702; 59025; 83986; 85025; 96372; 99211; J0702; J2405

== ENCOUNTER → 2020-07-10 14:34 | Outpatient (BNVA) | payer MEDICAID, SELFPAY | PROVIDERS: PCP Obstetrics & Gynecology; Visit Provider Obstetrics & Gynecology | DX: O99.343 Other mental disorders complicating pregnancy, third trimester (principal); Z30.09 Encounter for other general counseling and advice on contraception; Z30.017 Encounter for initial prescription of implantable subdermal contraceptive | CPT/HCPCS: 81025 ==

== ENCOUNTER 2020-12-28 08:04 | Emergency (ER) | payer MEDICAID, SELFPAY ==
[2020-12-28 08:08] VITALS: BP 135/79; PULSE 95; RESP 18; TEMP 36.8; O2SAT 98; BMI 25.8
[2020-12-28] MEDS: sodium chloride 0.9% 1,000 ML 999 ML IV (08:37)
[2020-12-28] MEDS: ondansetron 2 mg/ML SDV 2 mL 4 MG IVP (08:38)
[2020-12-28 08:48] VITALS: BP 99/72; PULSE 87; O2SAT 99
[2020-12-28 09:14] LABS: Basophils # 0.1 10^3/uL (0.0-0.1); Basophils % 1.1 %; Eosinophils # 0.1 10^3/uL (0.0-0.8); Hematocrit 37.9 % (37.0-47.0); Hemoglobin 12.7 g/dL (11.5-15.3); Lymphocytes # 1.2 10^3/uL (0.8-4.8); Mean Corpuscular HGB Conc 33.5 g/dL (30.0-36.0); Mean Corpuscular Hemoglobin 29.1 pg (28.0-34.0); Mean Corpuscular Volume 86.7 fL (81-99); Mean Platelet Volume 9.6 fL (7.4-10.4); Monocytes # 0.5 10^3/uL (0.2-0.9); Monocytes % 7.2 %; Neutrophils # 5.03 10^3/uL (1.8-7.7); Nucleated Red Blood Cells % 0 %; Platelet Count 325 10^3/cmm (130-400); Red Blood Count 4.37 10^6/uL (4.1-5.3); Red Cell Distribution Width 12.7 % (12.1-15.1)
[2020-12-28 09:42] LABS: Add Urine Microscopic? YES; Bilirubin Urine 1+ (Negative); Blood Urine Neg (Negative); Glucose Urine UA Norm (Normal); Ketones Urine Negative (Negative); Leukocyte Esterase Urine 2+ (Negative); Nitrate Urine Negative (Negative); Protein Urine Neg (Negative); Specific Gravity, Urine 1.015 (1.005-1.030); Urine Appearance Clear (CLEAR); Urine Color Yellow (Yellow); Urobilinogen Urine 1 mg/dL (Negative); pH Urine 7 (5-7)
[2020-12-28 09:43] VITALS: BP 113/89; PULSE 72; O2SAT 100
[2020-12-28 09:43] LABS: Add Urine Culture? Yes; Bacteria Urine 1+ /hpf; WBC Urine 15-25 /hpf (0-5)
[2020-12-28 09:55] LABS: Alanine Aminotransferase 13 U/L (0-33); Albumin Level 4.3 g/dL (3.5-5.2); Alkaline Phosphatase 93 IU/L (35-105); Anion Gap 14.7 (5-19); Aspartate Amino Transferase 11 U/L (0-32); Blood Urea Nitrogen 14 mg/dL (6-20); Calcium 8.8 mg/dL (8.5-10.5); Carbon Dioxide 23 mmol/L (22-29); Chloride 104 mmol/L (98-107); Globulin 2.3 g/dL (1.3-4.6); Glomerular Filtration Rate 87.4 mL/min (90-130); Glucose 85 mg/dL (65-115); Lipase 23 U/L (13-60); Osmolality Calculated 286 mOsm/kg (285-295); Potassium 3.7 mmol/L (3.5-5.1); Sodium 138 mmol/L (136-145); Total Bilirubin 0.3 mg/dL (0.15-1.2); Total Protein 6.6 g/dL (6.6-8.7)
--- NOTE | 2020-12-28 09:58 | W.ED.FEVER ---
HPI - Fever General: Chief Complaint: Fever Stated Complaint: TEMP N/V Time Seen by Provider: 12/28/20 08:11 History of Present Illness: HPI Narrative: 25-year-old female recently treated for mastitis with Bactrim. She still is complaining of some fever. Some breast tenderness particularly on the right. No axillary lymphadenopathy. She reports a temperature at home up to 102 earlier this morning. She had some nausea and vomiting. On arrival here she had no fever but she had taken some Tylenol and ibuprofen earlier. She still is breast-feeding. MD elicited complaint: fever and malaise Onset (ago): hour(s) Exacerbating factors: nothing Relieving factors: nothing Associated symptoms: Reports vomiting and other (Breast tenderness); Deny abdominal pain, flank pain, chills, chest pain, confusion, cough, diarrhea, dysuria, extremity pain, headache(s), myalgias, nasal congestion, nausea, night sweats, rash, rhinorrhea, short of breath, sinus pain, stiffness, sore throat, vaginal discharge or weight loss Treatments prior to arrival fever: acetaminophen and ibuprofen Review of Systems Const: Denies: night sweats ENMT: Denies: nasal congestion or sinus pain Card: Denies: chest pain Resp: Denies: dyspnea, productive cough or non-productive cough GI: Reports: vomiting; Denies: abdominal pain, nausea or diarrhea : Denies: flank pain or dysuria Musc: Denies: extremity pain Skin/Breast: Denies: rash or pruritus Neuro: Denies: headache(s) or confusion PFS ED PFSH: Medical History (Updated 12/28/20 @ 10:01 by Walter Vegas DO) Anxiety with depression has used medication in the past; especially ; symptoms managed since 2019 w/o meds Fever blister Reports having fever blisters around the mouth and nose area. Denies history of genital herpes. History of cholestasis during Diagnosed in 7th . Required delivery at 36 weeks. Tachycardia (~2012) Surgical History History of appendectomy (~2015) History of neck surgery (~2015) cyst as a child History of tonsillectomy (~2015) Family History (Updated 05/24/20 @ 13:15 by Colleen Benson LPN) Grandmother Hypertension Maternal grandmother Stroke Maternal Grandfather Hypertension Maternal grandfather Hyperlipidemia Paternal grandfather Colon cancer Maternal great grandfather Family/Other Breast cancer Maternal great aunt Other Anxiety with depression Social History (Updated 07/13/20 @ 17:22 by Lincoln Laboy MD) Smoking and tobacco status: never smoked Quit status (tobacco): has quit using tobacco Year quit tobacco: 09/2019 Former quit date comment: 4-5 cig/day Alcohol intake: former Former alcohol use details: occasional prior to Additional social history: Denies any drug use. Female Reproductive History: Date of last menstrual period: 09/13/19 Physical Exam Const: COMMON NORMALS: no acute distress GENERAL APPEARANCE: cooperative and comfortable ORIENTATION/CONSCIOUSNESS: Yes awake, Yes oriented to person, Yes oriented to place and Yes oriented to time HENMT: COMMON NORMALS: normocephalic, atraumatic and hearing grossly normal bilaterally HEAD & SCALP: normocephalic and atraumatic Neck/C-Spine: COMMON NORMALS: no JVD Chest: OTHER: Breast moderately tender with no redness erythema no palpable masses no axillary lymphadenopathy right more tender than the left. Resp: COMMON NORMALS: normal respiratory effort, No retractions, No use of accessory muscles and clear to auscultation bilaterally AUSCULTATION: clear to auscultation bilaterally Cardio: COMMON NORMALS: no JVD, regular rate, regular rhythm and No murmurs present (Cardio) RATE: regular rate RHYTHM: regular rhythm GI: COMMON NORMALS: Soft to palpation and No hepatosplenomegaly present AUSCULTATION: Yes normoactive bowel sounds PALPATION: Yes Soft to palpation, No Tenderness to palpation present (GI), No Guarding due to palpation present (GI) and Yes No hepatosplenomegaly present Extremity: COMMON NORMALS: normal to inspection, capillary refill normal, no clubbing, cyanosis or edema, no calf tenderness and no pedal edema Neuro: SENSORIUM/ORIENTATION: Yes oriented to person, Yes oriented to place and Yes oriented to time Skin: COMMON NORMALS: no rashes or lesions noted GENERAL SKIN EXAM: no rashes or lesions noted Course Vital Signs: Vital signs: Vital Signs Temperature 98.2 F 12/28/20 08:08 Pulse Rate 83 12/28/20 10:06 Respiratory Rate 18 12/28/20 08:08 Blood Pressure 123/79 12/28/20 10:06 Pulse Oximetry 100 12/28/20 10:06 MDM - Fever MDM Narrative: Medical decision making narrative: After normal here white count sign elevated. UA does show sign of infection we will put her on another course of Bactrim given the breast tenderness have her follow-up with primary care return if worsens Lab Data: Labs: Lab Results 12/28/20 12/28/20 12/28/20 Range/Units 08:37 08:37 08:43 WBC 7.0 (4.0-10.0) 10^3/ uL RBC 4.37 (4.1-5.3) 10^6/u L Hgb 12.7 (11.5-15.3) g/dL Hct 37.9 (37.0-47.0) % MCV 86.7 (81-99) fL MCH 29.1 (28.0-34.0) pg MCHC 33.5 (30.0-36.0) g/dL RDW 12.7 (12.1-15.1) % Plt Count 325 (130-400) 10^3/c mm MPV 9.6 (7.4-10.4) fL Neut % (Auto) 72.0 % Lymph % (Auto) 17.0 % Vance % (Auto) 7.2 % Eos % (Auto) 2.0 % Baso % (Auto) 1.1 % Neut # (Auto) 5.03 (1.8-7.7) 10^3/u L Lymph # (Auto) 1.2 (0.8-4.8) 10^3/u L Vance # (Auto) 0.5 (0.2-0.9) 10^3/u L Eos # (Auto) 0.1 (0.0-0.8) 10^3/u L Baso # (Auto) 0.1 (0.0-0.1) 10^3/u L Nucleated RBC % (a uto) 0 % Nucleated RBCs # 0.0 /100WBC Sodium 138 (136-145) mmol/L Potassium 3.7 (3.5-5.1) mmol/L Chloride 104 (98-107) mmol/L Carbon Dioxide 23 (22-29) mmol/L Anion Gap 14.7 (5-19) BUN 14 (6-20) mg/dL Creatinine 0.8 (0.5-0.9) mg/dL GFR Calculation 87.4 L (90-130) mL/min Glucose 85 (65-115) mg/dL Calculated Osmolal ity 286 (285-295) mOsm/k g Calcium 8.8 (8.5-10.5) mg/dL Total Bilirubin 0.3 (0.15-1.2) mg/dL AST 11 (0-32) U/L ALT 13 (0-33) U/L Alkaline Phosphata se 93 (35-105) IU/L Total Protein 6.6 (6.6-8.7) g/dL Albumin 4.3 (3.5-5.2) g/dL Globulin 2.3 (1.3-4.6) g/dL Lipase 23 (13-60) U/L Urine Color Yellow (Yellow) Urine Appearance Clear (CLEAR) Urine pH 7 (5-7) Ur Specific Gravit y 1.015 (1.005-1.030) Urine Protein Neg (Negative) Urine Glucose (UA) Norm (Normal) Urine Ketones Negative (Negative) Urine Blood Neg (Negative) Urine Nitrate Negative (Negative) Urine Bilirubin 1+ H (Negative) Urine Urobilinogen 1 H (Negative) mg/dL Ur Leukocyte Valentina ase 2+ H (Negative) Urine RBC None (0-2) /hpf Urine WBC 15-25 H (0-5) /hpf Ur Squamous Epith Cells 5-10 H (0-5) /hpf Amorphous Sediment Not Reportable Urine Bacteria 1+ H (NONE) /hpf Discharge Plan Discharge Patient Disposition: Home Clinical Impression: Mastitis, Cystitis Condition: Stable Prescriptions: New sulfamethoxazole-trimethoprim 800-160 mg tablet 1 tab PO BID 10 Days Qty: 20 RF: 0 No Action prenat.vits,arielle,rfh-nbnb-nqciy Tablet 1 tab PO DAILY 30 Days Qty: 30 RF: 8 diphenhydramine HCl [Benadryl Allergy] 25 mg tablet 25 mg PO ONCE PRN (Reason: Allergies) RF: 0 (DME) breast pump Device See Rx Instructions .ROUTE .MEDSUPPLY Qty: 1 RF: 0 sertraline 100 mg tablet 200 mg PO DAILY Qty: 30 RF: 3 acyclovir 400 mg tablet 400 mg PO BID 30 Days Qty: 60 RF: 12 metoclopramide HCl [Reglan] 10 mg tablet 10 mg PO TID 7 Days Qty: 42 RF: 0 buspirone 15 mg tablet 15 mg PO TID Qty: 90 RF: 3 alprazolam 0.5 mg tablet 0.5 mg PO TID PRN (Reason: anxiety) Qty: 40 RF: 0 mupirocin 2 % ointment 1 applic TOPICAL DAILY Qty: 15 RF: 0 betamethasone valerate 0.1 % cream 1 applic TOPICAL DAILY Qty: 15 RF: 0 miconazole nitrate 2 % ointment 1 applic TOPICAL DAILY Qty: 15 RF: 0 Discharge Orders: Discharge ED (Routine); Ordered 12/28/20 Ordered By: Walter Vegas Referrals: Jaymie Osborn DO [Primary Care Provider] - Discharge Diet: Usual diet Discharge Activity: Increase activity as tolerated Patient Instructions: Opioid Safety Activity Restrictions/Additional Instructions: Follow-up with your PCP if not improving. To the emergency room if you have any problems. Coding Level of Care Code ED Specialty Finishing Utility Person for Vijaya Rocha
[2020-12-28 10:06] VITALS: BP 123/79; PULSE 83; O2SAT 100
== END 2020-12-28 10:12 | disposition home or self-care (01) ==
PROVIDERS: Emergency Provider Family Medicine; PCP Family Medicine
DX: N30.90 Cystitis, unspecified without hematuria (principal); N61.0 Mastitis without abscess
CPT/HCPCS: 80053; 81001; 83690; 85025; 87086; 96361; 96374; 99283; J2405; J7030

== ENCOUNTER 2021-03-19 07:18 | Emergency (ER) | payer MEDICAID, SELFPAY ==
--- NOTE | 2021-03-19 07:30 | XR_ITS ---
WS: [id number] PORTABLE CHEST HISTORY: Cough COMPARISON: None available. Mild pulmonary hyperexpansion. No pneumonia or consolidation. No pleural effusion or pneumothorax. Cardiac size: Normal. Mediastinum/Aorta: Normal mediastinum. No osseous abnormality seen. XR/XR chest 1V portable [id number] IMPRESSION: Mild hyperexpansion. No pneumonia.
--- NOTE | 2021-03-19 07:30 | ED_ITS ---
HPI - General Adult General: Chief complaint: Fever Stated complaint: COUGH,SOB, ACHES Time Seen by Provider: 03/19/21 07:28 History of Present Illness: HPI narrative: This patient is a 25-year-old female who presents to the emergency department with fever productive cough and body aches. Patient states that she does not unknown whether she had Covid exposure. 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 Patient states she has felt bad and sick for the past 2 days. Will do medical evaluation treat as needed Onset (ago): day(s) Severity: mild Pain Consistency: constant Associated symptoms: Reports dyspnea; Deny chest pain, headache(s), nausea, rash, palpitations or vomiting Review of Systems General: Reports: 10 or more systems reviewed and unremarkable except in HPI and below Const: Reports: fever(s) and body aches; Denies: chills or fatigue Eyes: Denies: change in vision or blurry vision ENMT: Denies: throat pain, hoarseness or mouth pain Card: Denies: chest pain, palpitations, irregular heart rhythm, edema, swelling of feet/ankles or lightheadedness Resp: Reports: dyspnea and non-productive cough; Denies: productive cough, wheezing or pain on inspiration GI: Denies: abdominal pain, nausea or vomiting : Denies: flank pain, difficulty voiding, dysuria, urinary frequency, urinary urgency or urinary hesitancy Musc: Denies: neck pain, back pain, extremity pain, extremity swelling, joint pain, joint swelling, joint redness, joint warmth or limited range of motion Skin/Breast: Denies: rash, pruritus, erythema or skin tenderness Neuro: Denies: headache(s), numbness in extremities or weakness in extremities Psych: Denies: anxiety or depression [facility] ED PFSH: Medical History Anxiety with depression has used medication in the past; especially ; symptoms managed since 2019 w/o meds Fever blister Reports having fever blisters around the mouth and nose area. Denies history of genital herpes. History of cholestasis during Diagnosed in 7th . Required delivery at 36 weeks. Tachycardia (~2012) Surgical History History of appendectomy (~2016) History of neck surgery (~2016) cyst as a child History of tonsillectomy (~2016) Family History Grandmother Hypertension Maternal grandmother Stroke Maternal Grandfather Hypertension Maternal grandfather Hyperlipidemia Paternal grandfather Colon cancer Maternal great grandfather Family/Other Breast cancer Maternal great aunt Other Anxiety with depression Social History Smoking and tobacco status: never smoked Quit status (tobacco): has quit using tobacco Year quit tobacco: 09/2019 Former quit date comment: 4-5 cig/day Alcohol intake: former Former alcohol use details: occasional prior to Additional social history: Denies any drug use. Female Reproductive History: Date of last menstrual period: 09/13/19 Physical Exam Const: COMMON NORMALS: no acute distress, average body habitus, patient oriented x3, no limitations, healthy appearing, alert and well nourished HENMT: COMMON NORMALS: normocephalic, atraumatic, hearing grossly normal bilaterally, external ears normal, EAC's normal, TM's normal bilaterally, Normal external nose present, Normal nasal mucous membranes and turbinates present, moist oral mucous membranes, oropharynx normal, dentition normal and gingiva normal HEAD & SCALP: normocephalic and atraumatic NOSE: Normal external nose present and Normal nasal mucous membranes and turbinates present EXTERNA L EAR: Yes external ears normal EXTERNAL AUDITORY CANAL: EAC's normal TYMPANIC MEMBRANE: TM's normal bilaterally Neck/C-Spine: COMMON NORMALS: full ROM, no lymphadenopathy, supple, no meningeal signs, no JVD, Thyroid normal and No carotid bruits THYROID: Thyroid normal Chest: COMMONS NORMALS: normal inspection of the chest, normal palpation of entire chest wall, normal inspection of the breasts and normal palpation of the breasts Breast/axilla inspection: Yes normal inspection of the breasts BREAST/AXILLA PALPATION: Yes normal palpation of the breasts Resp: COMMON NORMALS: normal respiratory effort, No retractions, No use of accessory muscles, clear to auscultation bilaterally and percussion normal AUSCULTATION: clear to auscultation bilaterally PERCUSSION: percussion normal Cardio: COMMON NORMALS: no JVD, regular rate, regular rhythm, S1 normal heart sound present, S2 normal heart sound present, No gallops present (Cardio), No clicks present (Cardio), No murmurs present (Cardio), No rub (Cardio) and Peripheral pulses 2+ throughout RATE: regular rate RHYTHM: regular rhythm HEART SOUNDS: S1 normal heart sound present and S2 normal heart sound present PERIPHERAL PULSES: Peripheral pulses 2+ throughout GI: COMMON NORMALS: Normal to inspection, nondistended, normoactive bowel sounds present, Soft to palpation, non-tender, No hepatosplenomegaly present, no masses and no bruits PALPATION: Yes Soft to palpation and Yes No hepatosplenomegaly present Back/Pelvis: COMMON NORMALS: thoracic and lumbar spine normal to inspection, no thoracic nor lumbar tenderness, thoraco-lumbar ROM normal and straight leg raise negative bilaterally Extremity: COMMON NORMALS: normal to inspection, full ROM, capillary refill normal, no joint enlargement, no clubbing, cyanosis or edema, no calf tenderness and no pedal edema Neuro: COMMON NORMALS: patient oriented x3 SENSORIUM/ORIENTATION: Yes alert MENINGEAL SIGNS: Yes no meningeal signs Course Reevaluation(s): Reevaluation #1: Discussed at length with patient about positive Covid test. Patient encouraged p.o. fluids. Take medications as prescribed. Get plenty rest. Tylenol Motrin as needed as needed for fever pain. Patient is to self quarantine as instructed. Patient states understanding Time: 08:53 Vital Signs: Vital signs: Vital Signs Temperature 102.8 F H 03/19/21 07:45 Pulse Rate 106 H 03/19/21 07:51 Respiratory Rate 18 03/19/21 07:51 Blood Pressure 103/63 03/19/21 07:51 Pulse Oximetry 96 03/19/21 07:51 MDM - General Adult MDM Narrative: Medical decision making narrative: Discussed at length with patient about positive Covid test. Patient encouraged p.o. fluids. Take m edications as prescribed. Get plenty rest. Tylenol Motrin as needed as needed for fever pain. Patient is to self quarantine as instructed. Patient states understanding Medical Records: Attestation: I reviewed the patient's medical records. Lab Data: Attestation: I reviewed the patient's lab results. Labs: Lab Results 03/19/21 Range/Units 07:41 SARS-CoV-2 Ag (Rap id) Positive H (Negative) Discharge Plan Discharge Patient Disposition: Home Clinical Impression: COVID-19 Condition: Stable Prescriptions: New diclofenac sodium 75 mg tablet,delayed release (DR/EC) 75 mg PO BID PRN (Reason: pain) Qty: 20 RF: 0 albuterol sulfate 90 mcg/actuation HFA aerosol inhaler 2 puff inhalation Q4H PRN (Reason: shortness of breath or wheezing) Qty: 8.5 RF: 0 No Action buspirone 15 mg tablet 15 mg PO TID Qty: 90 RF: 3 paroxetine HCl [Paxil] 10 mg tablet 10 mg PO DAILY RF: 0 Discharge Orders: Discharge ED (Routine); Ordered 03/19/21 Ordered By: Lincoln Quesada Referrals: Jaymie Osborn DO [Primary Care Provider] - Discharge Diet: Advance as tolerated Discharge Activity: Resume usual activity Patient Instructions: Opioid Safety Activity Restrictions/Additional Instructions: Patient encouraged p.o. fluids. Take medications as prescribed. Get plenty rest. Tylenol Motrin as needed as needed for fever pain. Patient is to self quarantine as instructed. Coding Level of Care Code ED Aeroplane Pilot for Vijaya Fwd Exam Comprehensive
[2021-03-19 07:45] VITALS: BP 103/63; PULSE 117; RESP 22; TEMP 39.3; O2SAT 99; BMI 23.3
[2021-03-19 07:51] VITALS: BP 103/63; PULSE 106; RESP 18; O2SAT 96
[2021-03-19] MEDS: acetaminophen 325 mg Tablet 650 MG PO (07:54)
[2021-03-19 08:26] LABS: SARS Covid-2 Antigen Positive (Negative)
[2021-03-19] MEDS: dexamethasone 10 mg/mL INJ IM (09:14)
[2021-03-19 09:40] VITALS: BP 110/67; PULSE 100; RESP 18; TEMP 38.9; O2SAT 98
== END 2021-03-19 09:46 | disposition home or self-care (01) ==
PROVIDERS: Emergency Provider Emergency Medicine; PCP Family Medicine
DX: U07.1 COVID-19 (principal); Z87.891 Personal history of nicotine dependence
CPT/HCPCS: 71045; 87426; 96372; 99283; J1100

== ENCOUNTER 2021-09-10 08:46 | Emergency (ER) | payer MEDICAID, SELFPAY ==
[2021-09-10 09:14] VITALS: BP 108/73; PULSE 104; RESP 16; TEMP 37.2; O2SAT 100; BMI 21.7
[2021-09-10 10:48] LABS: Basophils # 0.1 10^3/uL (0.0-0.1); Basophils % 0.9 %; Eosinophils # 0.1 10^3/uL (0.0-0.8); Eosinophils % 1.1 %; Hematocrit 42.3 % (37.0-47.0); Hemoglobin 13.7 g/dL (11.5-15.3); Lymphocytes # 1.3 10^3/uL (0.8-4.8); Lymphocytes % 22.6 %; Mean Corpuscular HGB Conc 32.4 g/dL (30.0-36.0); Mean Corpuscular Hemoglobin 28.2 pg (28.0-34.0); Mean Platelet Volume 9.9 fL (7.4-10.4); Monocytes # 0.4 10^3/uL (0.2-0.9); Monocytes % 7.8 %; Neutrophils # 3.83 10^3/uL (1.8-7.7); Neutrophils % 67.4 %; Nucleated Red Blood Cells % 0 %; Platelet Count 358 10^3/cmm (130-400); Red Blood Count 4.86 10^6/uL (4.1-5.3); Red Cell Distribution Width 12.6 % (12.1-15.1); White Blood Count 5.7 10^3/uL (4.0-10.0)
[2021-09-10 10:59] VITALS: RESP 14
[2021-09-10 11:06] LABS: HCG, Serum Qual Negative (Negative)
[2021-09-10 11:13] LABS: Alanine Aminotransferase 7 U/L (0-33); Albumin Level 4.3 g/dL (3.5-5.2); Alkaline Phosphatase 74 IU/L (35-105); Aspartate Amino Transferase 15 U/L (0-32); Blood Urea Nitrogen 12 mg/dL (6-20); Calcium 8.8 mg/dL (8.5-10.5); Carbon Dioxide 27 mmol/L (22-29); Chloride 104 mmol/L (98-107); Globulin 2.6 g/dL (1.3-4.6); Glomerular Filtration Rate 101.1 mL/min (90-130); Glucose 70 mg/dL (65-115); Osmolality Calculated 288 mOsm/kg (285-295); Sodium 140 mmol/L (136-145); Total Bilirubin 0.3 mg/dL (0.15-1.2); Total Protein 6.9 g/dL (6.6-8.7)
--- NOTE | 2021-09-10 11:44 | W.ED.FEMALGU ---
HPI - Female Genitourinary General: Chief complaint: Urogenital-Female Stated complaint: Excessive Vaginal Bleeding/Cramping Time Seen by Provider: 09/10/21 11:11 Source: patient Mode of arrival: ambulatory Limitations: no limitations History of Present Illness: HPI Narrative: 26-year-old female complaining of abnormal vaginal bleeding for the last 3 weeks. She had the Implanon placed just over a year ago, and had not had any bleeding up until this current episode of bleeding. Bleeding amount has been variable over the last 3 weeks, this morning she it was especially heavy, which is why she came to the ED. She has had occasional dizziness on standing over the past several weeks. Frequent cramps No abnormal vaginal discharge. No dysuria or fever. No history of bleeding disorders. No nausea, vomiting or diarrhea. MD elicited complaint: vaginal bleeding Associated symptoms: Reports vaginal bleeding Date of Last Menstrual Period: 09/13/19 Review of Systems General: Reports: 10 or more systems reviewed and unremarkable except in HPI and below PFSH ED PFSH: Medical History Anxiety with depression has used medication in the past; especially ; symptoms managed since 2019 w/o meds Fever blister Reports having fever blisters around the mouth and nose area. Denies history of genital herpes. History of cholestasis during Diagnosed in 7th . Required delivery at 36 weeks. Tachycardia (~2012) Surgical History History of appendectomy (~2015) History of neck surgery (~2015) cyst as a child History of tonsillectomy (~2015) Family History Grandmother Hypertension Maternal grandmother Stroke Maternal Grandfather Hypertension Maternal grandfather Hyperlipidemia Paternal grandfather Colon cancer Maternal great grandfather Family/Other Breast cancer Maternal great aunt Other Anxiety with depression Social History Smoking and tobacco status: never smoked Quit status (tobacco): has quit using tobacco Year quit tobacco: 09/2019 Former quit date comment: 4-5 cig/day Alcohol intake: former Former alcohol use details: occasional prior to Additional social history: Denies any drug use. Female Reproductive History: Date of last menstrual period: 09/13/19 Physical Exam Const: COMMON NORMALS: no acute distress, average body habitus and patient oriented x3 GENERAL APPEARANCE: cooperative, comfortable, well kempt and well developed HENMT: COMMON NORMALS: normocephalic and hearing grossly normal bilaterally HEAD & SCALP: normocephalic FACE & SINUS: normal facial exam and face symmetric Eye: COMMON NORMALS: Equal, round and reactive pupils present, EOMs intact bilaterally and conjunctivae normal CONJUNCTIVA: Yes conjunctivae normal PUPIL: Yes Equal, round and reactive pupils present Lymph: LYMPHATIC: no lymphadenopathy noted Resp: COMMON NORMALS: normal respiratory effort and No use of accessory muscles EFFORT & INSPECTION: Yes able to speak in complete sentences Cardio: COMMON NORMALS: regular rate and regular rhythm RATE: regular rate RHYTHM: regular rhythm GI: COMMON NORMALS: Normal to inspection, nondistended, normoactive bowel sounds present, Soft to palpation and non-tender PALPATION: Yes Soft to palpation : COMMON NORMALS: Yes normal external appearance, Yes normal bimanual exam, Yes No adnexal tenderness and Yes no masses SPECULUM EXAM - VAGINA: Yes vaginal bleeding Amount: small/minimal BIMANUAL EXAM - VAGINA & UTERUS: Yes normal bimanual exam OB/EXTERNAL & SPECULUM: vaginal bleeding Extremity: COMMON NORMALS: normal to inspection, full ROM and capillary refill normal Neuro: COMMON NORMALS: patient oriented x3, CN's II-XII intact bilaterally and moves all extremities Psych: COMMON NORMALS: mental status grossly normal APPEARANCE: Yes well kempt Skin: COMMON NORMALS: no rashes or lesions noted, no wounds, turgor normal and no jaundice GENERAL SKIN EXAM: no rashes or lesions noted, turgor normal and no pallor Course Vital Signs: Vital signs: Vital Signs Temperature 99.0 F 09/10/21 09:14 Pulse Rate 104 H 09/10/21 09:14 Respiratory Rate 14 09/10/21 10:59 Blood Pressure 108/73 09/10/21 09:14 Pulse Oximetry 100 09/10/21 09:14 MDM - Female MDM Narrative: Medical decision making narrative: 26-year-old female with abnormal vaginal bleeding, has an Implanon Well-appearing, vital signs stable, mild vaginal bleeding on exam. Hemoglobin 13.7, higher than previous baseline levels. hCG negative Provera 10 mg daily x7 days Follow-up with ACCOUNT ASSOCIATE Bleeding precautions Medical Records: Attestation: I reviewed the patient's medical records. Lab Data: Attestation: I reviewed the patient's lab results. Labs: Lab Results 09/10/21 09/10/21 09/10/21 10:38 10:38 10:38 WBC 5.7 10^3/uL 10^3/ uL (4.0-10.0) RBC 4.86 10^6/uL 10^6 /uL (4.1-5.3) Hgb 13.7 g/dL g/dL (11.5-15.3) Hct 42.3 % % (37.0-47.0) MCV 87.0 fl fl (81-99) MCH 28.2 pg pg (28.0-34.0) MCHC 32.4 g/dL g/dL (30.0-36.0) RDW 12.6 % % (12.1-15.1) Plt Count 358 10^3/cmm 10^3 /cmm (130-400) MPV 9.9 fL fL (7.4-10.4) Neut % (Auto) 67.4 % % Lymph % (Auto) 22.6 % % Sutton % (Auto) 7.8 % % Eos % (Auto) 1.1 % % Baso % (Auto) 0.9 % % Neut # (Auto) 3.83 10^3/uL 10^3 /uL (1.8-7.7) Lymph # (Auto) 1.3 10^3/uL 10^3/ uL (0.8-4.8) Sutton # (Auto) 0.4 10^3/uL 10^3/ uL (0.2-0.9) Eos # (Auto) 0.1 10^3/uL 10^3/ uL (0.0-0.8) Baso # (Auto) 0.1 10^3/uL 10^3/ uL (0.0-0.1) Nucleated RBC % (a uto) 0 % % Nucleated RBCs # 0.0 /100WBC /100W BC Sodium 140 mmol/L mmol/L (136-145) Potassium 4.0 mmol/L mmol/L (3.5-5.1) Chloride 104 mmol/L mmol/L (98-107) Carbon Dioxide 27 mmol/L mmol/L (22-29) Anion Gap 13.0 (5-19) BUN 12 mg/dL mg/dL (6-20) Creatinine 0.7 mg/dL mg/dL (0.5-0.9) GFR Calculation 101.1 mL/min mL/m in (90-130) Glucose 70 mg/dL mg/dL (65-115) Calculated Osmolal ity 288 mOsm/kg mOsm/ kg (285-295) Calcium 8.8 mg/dL mg/dL (8.5-10.5) Total Bilirubin 0.3 mg/dL mg/dL (0.15-1.2) AST 15 U/L U/L (0-32) ALT 7 U/L U/L (0-33) Alkaline Phosphata se 74 IU/L IU/L (35-105) Total Protein 6.9 g/dL g/dL (6.6-8.7) Albumin 4.3 g/dL g/dL (3.5-5.2) Globulin 2.6 g/dL g/dL (1.3-4.6) HCG, Qual Negative (Negative) Discharge Plan Discharge Patient Disposition: Home Clinical Impression: Abnormal vaginal bleeding Condition: Stable Prescriptions: New Provera 10 mg tablet 10 mg PO DAILY 7 Days Qty: 7 RF: 0 No Action buspirone 15 mg tablet 15 mg PO TID Qty: 90 RF: 3 paroxetine HCl [Paxil] 10 mg tablet 10 mg PO DAILY RF: 0 diclofenac sodium 75 mg tablet,delayed release (DR/EC) 75 mg PO BID PRN (Reason: pain) Qty: 20 RF: 0 albuterol sulfate 90 mcg/actuation HFA aerosol inhaler 2 puff inhalation Q4H PRN (Reason: shortness of breath or wheezing) Qty: 8.5 RF: 0 Discharge Orders: Discharge ED (Routine); Ordered 09/10/21 Ordered By: Kailey Cortes Discharge Diet: Usual diet Discharge Activity: Resume usual activity Patient Instructions: Abnormal (Dysfunctional) Uterine Bleeding (ED) Activity Restrictions/Additional Instructions: Call to schedule follow-up appointment with your ACCOUNT ASSOCIATE in the next 3 to 5 days. Return immediately to the ER if you develop dizziness, persistent heavy bleeding, fainting, fever, worsening abdominal pain, or any other concerning changes. Coding Level of Care Code ED Furrier Shop Supervisor for Vijaya Rocha
[2021-09-10 11:58] VITALS: BP 111/70; PULSE 72; RESP 15; O2SAT 100
== END 2021-09-10 11:58 | disposition home or self-care (01) ==
PROVIDERS: Physician Assistant; Emergency Provider Family Medicine
DX: N93.9 Abnormal uterine and vaginal bleeding, unspecified (principal); Z87.891 Personal history of nicotine dependence
CPT/HCPCS: 80053; 84703; 85025; 99283

== ENCOUNTER 2022-07-12 12:10 | Emergency (ER) | payer MEDICAID, SELFPAY ==
[2022-07-12 12:30] VITALS: BP 137/78; PULSE 99; RESP 18; TEMP 36.6; O2SAT 100; BMI 19.3
[2022-07-12 12:34] VITALS: BP 137/78; PULSE 99; RESP 16; TEMP 36.6; O2SAT 100
--- NOTE | 2022-07-12 12:37 | W.ED.FALL ---
HPI - Fall General: Chief Complaint: Fall Stated Complaint: Fell last night, head is hurting Time Seen by Provider: 07/12/22 12:37 History of Present Illness: Ms. Thomson is a 27-year-old lady with apparent history of seizures presenting to the emergency department due to fall with head injury. She reports being at her baseline health and was running out the door and boots without consoles when she fell landing on her head. She endorses loss of consciousness that was unsure of how long. Marlena-event amnesia, bilateral blurry vision, nausea vomiting, increased seizure frequency since event. Left sided headache which is moderate in intensity. No other specific changes in health, exacerbating, or alleviating factors identified. Onset (ago): hour(s) Fall from: standing Fall witnessed: yes, by bystander Place fall occurred: home Loss of consciousness: Yes Length of LOC: second(s) Symptoms prior to fall: none Context: tripped/slipped Location of injury: head Severity: moderate Quality: dull and aching Associated symptoms-after fall: Reports confusion, difficulty walking and other Review of Systems General: Reports: 10 or more systems reviewed and unremarkable except in HPI and below Neuro: Reports: difficulty walking and confusion PFSH ED PFSH: Medical History Anxiety with depression has used medication in the past; especially ; symptoms managed since 2019 w/o meds Fever blister Reports having fever blisters around the mouth and nose area. Denies history of genital herpes. History of cholestasis during Diagnosed in 7th . Required delivery at 36 weeks. Tachycardia (~2012) Surgical History History of appendectomy (~2016) History of neck surgery (~2016) cyst as a child History of tonsillectomy (~2016) Family History Grandmother Hypertension Maternal grandmother Stroke Maternal Grandfather Hypertension Maternal grandfather Hyperlipidemia Paternal grandfather Colon cancer Maternal great grandfather Family/Other Breast cancer Maternal great aunt Other Anxiety with depression Female Reproductive History: Date of last menstrual period: 09/13/19 Physical Exam Const: COMMON NORMALS: alert GENERAL APPEARANCE: cooperative and well developed HENMT: COMMON NORMALS: normocephalic HEAD & SCALP: normocephalic THROAT: posterior oropharynx normal OTHER: Tenderness palpation with mild bogginess left temporal region and parietal region. No murphy signs or raccoon eyes. No hemotympanum. No otorrhea or rhinorrhea. Jaw alignment normal. Dentition baseline. No obvious bony step-offs. No septal hematoma. No evidence of ocular entrapment. Eye: COMMON NORMALS: conjunctivae normal CONJUNCTIVA: Yes conjunctivae normal SCLERA: sclerae normal OTHER: OD 20/40 OS 20/40 OU 20/40 Neck/C-Spine: COMMON NORMALS: supple GENERAL: Yes trachea midline Resp: COMMON NORMALS: normal respiratory effort and clear to auscultation bilaterally EFFORT & INSPECTION: Yes able to speak in complete sentences AUSCULTATION: clear to auscultation bilaterally Cardio: COMMON NORMALS: regular rate and regular rhythm RATE: regular rate RHYTHM: regular rhythm GI: COMMON NORMALS: Soft to palpation PALPATION: Yes Soft to palpation and No Tenderness to palpation present (GI) PERCUSSION: normal to percussion Extremity: GENERAL: Yes normal exam except as noted and No edema Neuro: COMMON NORMALS: moves all extremities SENSORIUM/ORIENTATION: Yes alert and No Orientation impaired Psych: COMMON NORMALS: mental status grossly normal and Normal thought process present THOUGHT PROCESS: Normal thought process present Course Vital Signs: Vital signs: Vital Signs Temperature 97.8 F 07/12/22 14:04 Pulse Rate 99 07/12/22 14:04 Respiratory Rate 16 07/12/22 14:04 Blood Pressure 137/78 07/12/22 14:04 Pulse Oximetry 100 07/12/22 14:04 Oxygen Delivery Me thod 07/12/22 15:00 MDM - Fall Medical Decision Making 27-year-old lady presenting with fall with head injury and postinjury symptoms. Head to toe exam performed as above. Symptom treatment ordered. No indication for labs. CTs negative for acute traumatic injury. Mostly because of patient symptoms is closed head injury with postconcussive type symptoms. The results of ED evaluation were discussed with the patient including prescriptions and/or symptomatic cares (if applicable) including appropriate and responsible use, followup plan, and return precautions. The patient verbalized understanding and felt safe for discharge. Medical Records I reviewed the patient's medical records. Lab Data I reviewed the patient's lab results. Radiology Impressions Face CT 10/30/22 12:53 IMPRESSION: No acute facial bony injury identified. Head CT 07/12/22 12:53 IMPRESSION: No acute intracranial injury identified. Discharge Plan Discharge Patient Disposition: Home Clinical Impression: Head injury, Concussion with loss of consciousness Condition: Stable Prescriptions: New Reglan 10 mg tablet 10 mg PO Q6H PRN (Reason: nausea and vomiting) Qty: 10 0RF No Action buspirone 15 mg tablet 15 mg PO TID Qty: 90 3RF paroxetine HCl [Paxil] 10 mg tablet 10 mg PO DAILY diclofenac sodium 75 mg tablet,delayed release (DR/EC) 75 mg PO BID PRN (Reason: pain) Qty: 20 0RF albuterol sulfate 90 mcg/actuation HFA aerosol inhaler 2 puff inhalation Q4H PRN (Reason: shortness of breath or wheezing) Qty: 8.5 0RF Discharge Orders: Discharge ED (Routine); Ordered 07/12/22 Ordered By: Aravind Saba Discharge Diet: Usual diet Discharge Activity: Increase activity as tolerated Patient Instructions: Concussion (ED), Post Concussion Syndrome (ED), Pain Management Activity Restrictions/Additional Instructions: Thank you for visiting the emergency department. You were seen evaluated for head injury. No internal or acute bony injuries were identified. The most likely cause of your symptoms is related to closed head injury/concussion. Typically symptoms improve with brain rest as discussed and resolve within 1 to 2 weeks though occasionally symptoms do persist beyond this. For headaches, nausea, vomiting I will prescribe Reglan. You can take this with 12.5 to 25 mg of Benadryl, [id number]-[id number] analgesics such as Tylenol or ibuprofen, and ensure that you are staying hydrated. Please follow-up with a primary care provider. Return to the emergency department for anything that you are concerned about a feel needs emergency department evaluation. Stand Alone Forms: Work/School Release Coding Level of Care Code ED Contract Associate Manager for Vijaya Rocha Exam Comprehensive
--- NOTE | 2022-07-12 12:53 | CTR_ITS ---
PROCEDURE INFORMATION: Exam: CT Maxillofacial Without Contrast Exam date and time: 07/12/2022 1:53 PM Age: 27 years old Clinical indication: Injury or trauma; Fall; Blunt trauma (contusions or hematomas); Head/scalp; Loss of consciousness not known; Additional info: Fall, blurry vision TECHNIQUE: Imaging protocol: Computed tomography of the of the face without contrast. Radiation optimization: All CT scans at this facility use at least one of these dose optimization techniques: automated exposure control; mA and/or kV adjustment per patient size (includes targeted exams where dose is matched to clinical indication); or iterative reconstruction. COMPARISON: No relevant prior studies available. RADIATION DOSE METRICS: Total DLP (mGy-cm): 1732.89 FINDINGS: Orbital cavities: Orbits are normal. Globes are unremarkable. Bones/joints: No acute fracture. Paranasal sinuses: Mild inferior mucous/mucosal thickening left frontal sinus. Soft tissues: Unremarkable. Dental: Supernumerary midline small maxillary incisor supernumerary dental remnant (series 7, image 36; series 3, image 26). Carious right mandibular 2nd molar, maxillary 2nd molar. Carious left maxillary and mandibular 3rd and mandibular 1st molars, left maxillary canine and 1st bicuspid. CT/CT facial bones wo con* [id number] IMPRESSION: No acute facial bony injury identified.
--- NOTE | 2022-07-12 12:53 | CTR_ITS ---
PROCEDURE INFORMATION: Exam: CT Head Without Contrast Exam date and time: 07/12/2022 1:53 PM Age: 27 years old Clinical indication: Injury or trauma; Fall; Blunt trauma (contusions or hematomas); Additional info: Fall, L head trauma TECHNIQUE: Imaging protocol: Computed tomography of the head without contrast. Radiation optimization: All CT scans at this facility use at least one of these dose optimization techniques: automated exposure control; mA and/or kV adjustment per patient size (includes targeted exams where dose is matched to clinical indication); or iterative reconstruction. COMPARISON: No relevant prior studies available. RADIATION DOSE METRICS: Total DLP (mGy-cm): 1732.89 FINDINGS: Brain: Normal. No hemorrhage. Unremarkable white matter. No mass effect. Ventricles: No ventriculomegaly. Paranasal sinuses: Visualized sinuses are unremarkable. No fluid levels. Mastoid air cells: Visualized mastoid air cells are well aerated. Bones/joints: No acute abnormality. No acute fracture. Soft tissues: Unremarkable. CT/CT head wo con* [id number] IMPRESSION: No acute intracranial injury identified.
[2022-07-12 13:04] VITALS: BP 137/78; PULSE 99; RESP 16; TEMP 36.6; O2SAT 100
[2022-07-12 13:34] VITALS: BP 137/78; PULSE 99; RESP 16; TEMP 36.6; O2SAT 100
[2022-07-12] MEDS: ondansetron 2 mg/ML SDV 2 mL 4 MG IVP (14:03)
[2022-07-12] MEDS: sodium chloride 0.9% 1,000 ML 999 ML IV (14:03)
[2022-07-12 14:04] VITALS: BP 137/78; PULSE 99; RESP 16; TEMP 36.6; O2SAT 100
[2022-07-12] MEDS: ketorolac 30 mg/mL INJ 15 MG IVP (15:14)
[2022-07-12] MEDS: diphenhydrAMINE 50 mg/mL SDV 1mL 12.5 MG IVP (15:15)
[2022-07-12] MEDS: metoclopramide 5 mg/mL SDV 2 mL 10 MG IVP (15:15)
== END 2022-07-12 15:36 | disposition home or self-care (01) ==
PROVIDERS: Emergency Provider Emergency Medicine
DX: S06.0X9A Concussion with loss of consciousness of unspecified duration, initial encounter (principal); W19.XXXA Unspecified fall, initial encounter
CPT/HCPCS: 70450; 70486; 96361; 96374; 96375; 99285; J1200; J1885; J2405; J2765; J7030